=== PATIENT | female | born 1990 | race Caucasian/White ===

== ENCOUNTER 2017-03-19 12:12 | Emergency (ER) | payer MEDICAID ==
[~2017-03-19 12:12] MED LIST: APAP/HYDROCODON1 T13 PO; COL100 PO
[2017-03-19 15:14] VITALS: BP 110/70
== END 2017-03-19 15:14 | disposition home or self-care (01) ==
LOC: ED 12:12
DX: M54.5 Low back pain (principal); M41.9 Scoliosis, unspecified; R55 Syncope and collapse
CPT/HCPCS: 82962